=== PATIENT | male | born 1945 | race Caucasian/White ===

== ENCOUNTER → 2017-05-05 | Outpatient (CLI) | payer MEDICARE, OTHER ==
[~2017-05-05] MED LIST: ALBUTEROL2.5 MG/0.5 INH; AMLODIPINE BESY10 MG PO; ARTIFICIAL TEAR15 ML OPHTH; ASPIRIN LO-DOSE81 MG PO; COZAAR50 MG PO; DELTASONE10 MG PO; FLOMAX0.4 MG PO; FLORASTOR250 MG PO; HUMIBID LA (MU600 MG PO; IPRAT-ALBUT 0.5-3 ML INH; LEVAQUIN 750 M750 MG PO; PRESERVISION A1 EAC2 PO; PROSCAR5 MG PO; PROVENTIL OR V6.7 GM INH; SPIRIVA RESPIMAT4 G1 INH; TAMIFLU30 MG PO; TENORMIN50 MG PO; ZOCOR20 MG PO
[2017-05-05 15:36] LABS: ALBUMIN 2.8 gm/dL (3.5-5.0); ANION GAP 11.2 (10.0-19.0); CALCIUM 8.7 mg/dL (8.5-10.5); CREATININE 1.9 mg/dL (0.6-1.3); POTASSIUM 4.2 mMol/L (3.7-5.1); TOTAL BILIRUBIN 0.2 mg/dL (0.0-1.5); TOTAL PROTEIN 6.2 g/dL (6.0-8.4)
== END | disposition disaster alternative care site (69) ==
LOC: GRAD 14:53 → GLAB 15:00 → GRAD 15:00
PROVIDERS: Urology
DX: Z08 Encounter for follow-up examination after completed treatment for malignant neoplasm (principal); N20.0 Calculus of kidney; N40.0 Benign prostatic hyperplasia without lower urinary tract symptoms; I70.90 Unspecified atherosclerosis; Z85.54 Personal history of malignant neoplasm of ureter